=== PATIENT | male | born 2000 | race Caucasian/White ===

== ENCOUNTER 2024-02-17 18:26 | Emergency (ER) | payer OTHER, BC ==
[2024-02-17] MEDS: Lidocaine 1% with EPINEPHrine 1:100,000 20 ML MDV INJECT ONE (19:28)
== END 2024-02-17 20:26 | disposition home or self-care (01) ==
LOC: JP.ED 18:26
DX: S63.282A Dislocation of proximal interphalangeal joint of right middle finger, initial encounter (principal); W16.42XA Fall into unspecified water causing other injury, initial encounter; Y93.89 Activity, other specified
CPT/HCPCS: 26770; 73120-26-RT; 73120-RT; 73130-26-RT; 73130-RT; 99283-25